=== PATIENT | male | born 1990 | race African-American/Black ===

== ENCOUNTER 2016-04-29 04:13 | Emergency (ER) | payer OTHER ==
--- NOTE | 2016-04-29 04:28 | ED ---
Osorio Hua Karl, scribed for Romeo Purdy MD on 04/29/16 at 0421 . Substance Abuse/Use - HPI Summary HPI Summary: Pt is a 25 y/o male brought in by [facility] that presents to the ED c/o acute EtOH intoxication. Pt reported that he drank too much patron and red bull tonight at home with his mother and girlfriend. Pt also reported that he used marijuana at 12:00 today. - History Of Current Complaint Stated Complaint: ALCOHOL CONSUMPTION Hx Obtained From: Patient, EMS Onset/Duration of Drug/ETOH Abuse: Hours Ingestion History: Amount Ingested Timing Of Abuse: Binge Use Severity Initially: Moderate Severity Currently: Moderate Character: Other - intoxicated Associated Signs And Symptoms: Nausea, Vomiting - Allergies/Home Medications Allergies/Adverse Reactions: Allergies Allergy/AdvReac Type Severity Reaction Status Date / Time No Known Allergies Allergy Verified 03/02/13 02:39 PMH/Surg Hx/FS Hx/Imm Hx - Family History Known Family History: Negative: Other - malignant hyperthermia - Social History Alcohol Use: Occasionally Substance Use Type: Reports: Marijuana Review of Systems Constitutional: Negative Eyes: Negative ENT: Negative Cardiovascular: Negative Respiratory: Negative Positive: Vomiting Genitourinary: Negative Musculoskeletal: Negative Skin: Negative Neurological: Negative Psychological: Other - acute EtOH intoxication All Other Systems Reviewed And Are Negative: Yes Physical Exam Triage Information Reviewed: Yes Vital Signs On Initial Exam: Initial Vitals Temp Pulse Resp BP Pulse Ox 98.0 F 64 16 154/100 97 04/29/16 04:17 04/29/16 04:17 04/29/16 04:17 04/29/16 04:17 04/29/16 04:17 Vital Signs Reviewed: Yes Appearance: Positive: Well-Appearing, No Pain Distress Skin: Positive: Warm Head/Face: Positive: Normal Head/Face Inspection Eyes: Positive: NAEEM ENT: Positive: Hearing grossly normal Neck: Positive: Supple Respiratory/Lung Sounds: Positive: Breath Sounds Present Cardiovascular: Positive: Normal Abdomen Description: Positive: Nontender, Soft Bowel Sounds: Positive: Present Musculoskeletal: Positive: Strength/ROM Intact Neurological: Positive: Sensory/Motor Intact, Alert, Oriented to Person Place, Time, Normal Gait Psychiatric: Positive: Normal Diagnostics - Vital Signs Vital Signs Temp Pulse Resp BP Pulse Ox 04/29/16 04:17 98.0 F 64 16 154/100 97 - Laboratory Lab Statement: Any lab studies that have been ordered have been reviewed, and results considered in the medical decision making process. Re-Evaluation - Re-Evaluation First Eval Change: Improved Course/Dx - Diagnoses Provider Diagnoses: Alcohol intoxication Discharge - Discharge Plan Condition: Improved Disposition: HOME Patient Education Materials: Alcohol Intoxication (ED), Abuse of Alcohol (ED) Referrals: Wily Casas MD [Primary Care Provider] - Additional Instructions: Please follow up with your primary care provider. Return to the emergency department for changing or worsening symptoms. The documentation as recorded by the Osorio ealge Karl accurately reflects the service I personally performed and the decisions made by , Romeo Purdy MD.
[2016-04-29 05:48] VITALS: BP 160/95
== END 2016-04-29 05:46 | disposition home or self-care (01) ==
LOC: ED 04:13
DX: F10.129 Alcohol abuse with intoxication, unspecified (principal); R11.2 Nausea with vomiting, unspecified
CPT/HCPCS: 99282

== ENCOUNTER → 2016-11-21 19:37 | Emergency (ER) | payer SELFPAY ==
--- NOTE | 2016-11-21 20:28 | RAD ---
INDICATION: LEFT wrist pain post fall 2 days ago. COMPARISON: No relevant prior exams available on the [facility] for comparison. TECHNIQUE: AP, lateral, and oblique views LEFT wrist. REPORT: Normal articular alignment. No cortical disruption or suspicious trabecular irregularity to suggest fracture. Preserved joint spaces. Unremarkable soft tissue contours. IMPRESSION: Negative exam. If there is high index of suspicion for an occult scaphoid fracture repeat exam in 7 - 10 days would be suggested.
--- NOTE | 2016-11-21 20:58 | ED ---
Upper Extremity Pain - HPI Summary HPI Summary: 26M presents with left wrist injury 3 days ago. He fell onto his wrist. He has full ROM of finger. minimal swelling. has not taken anything for pain. no numbness or tingling. no pain near thumb is near ulnar aspect of wrist. denies any previous injury to area. He is right handed and works in construction. - History of Current Complaint Chief Complaint: EDExtremityUpper Stated Complaint: LT WRIST INJURY Time Seen by Provider: 11/21/16 19:41 - Allergies/Home Medications Allergies/Adverse Reactions: Allergies Allergy/AdvReac Type Severity Reaction Status Date / Time No Known Allergies Allergy Verified 11/21/16 19:40 PMH/Surg Hx/FS Hx/Imm Hx Endocrine/Hematology History: Denies: Hx Anticoagulant Therapy Respiratory History: Denies: Hx Asthma Infectious Disease History: No Infectious Disease History: Denies: Traveled Outside the [place] in Last 30 Days - Family History Known Family History: Negative: Other - malignant hyperthermia - Social History Alcohol Use: Occasionally Alcohol Amount: on weekends Substance Use Type: Reports: None Smoking Status (MU): Light Every Day Tobacco Smoker Review of Systems Negative: Fever Negative: Chest Pain Negative: Shortness Of Breath Positive: Myalgia - left wrist pain All Other Systems Reviewed And Are Negative: Yes Physical Exam Triage Information Reviewed: Yes Vital Signs On Initial Exam: Initial Vitals Temp 98.1 F 11/21/16 19:40 Vital Signs Reviewed: Yes Appearance: Positive: Well-Appearing Skin: Positive: Warm, Dry Head/Face: Positive: Normal Head/Face Inspection Eyes: Positive: Normal, Conjunctiva Clear Respiratory/Lung Sounds: Positive: Clear to Auscultation, Breath Sounds Present Cardiovascular: Positive: Normal, RRR Musculoskeletal: Positive: Strength/ROM Intact - left wrist with pain, Other - minimal edema. neg snuff box tenderness. good pulses, capillary refill<2 secs Diagnostics - Vital Signs Vital Signs Temp Pulse Resp BP Pulse Ox 11/21/16 19:41 98.1 F 77 16 153/96 98 11/21/16 19:40 98.1 F - Laboratory Lab Statement: Any lab studies that have been ordered have been reviewed, and results considered in the medical decision making process. Course/Dx - Course Course Of Treatment: 26M presents with left wrist injury 3 days ago. He fell onto his wrist. He has full ROM of finger. minimal swelling. has not taken anything for pain. no numbness or tingling. no pain near thumb is near ulnar aspect of wrist. denies any previous injury to area. xray normal. no snuff box tenderness, will treat as sprain with rice. patient understands and agrees with plan. - Diagnoses Differential Diagnosis/HQI/PQRI: Positive: Fracture (Closed), Strain, Sprain Provider Diagnoses: Left wrist injury Discharge - Discharge Plan Condition: Good Disposition: HOME Patient Education Materials: Wrist Sprain (ED) Referrals: Wily Casas MD [Primary Care Provider] - Additional Instructions: Take Tylenol or ibuprofen every 6 hours as needed for pain Apply ice, rest, elevate Follow up with primary care physician within 5 days if no improvement Return to ED if develop any new or worsening symptoms
[2016-11-21 21:10] VITALS: BP 149/84
== END | disposition home or self-care (01) ==
LOC: ED 19:37
DX: S69.92XA Unspecified injury of left wrist, hand and finger(s), initial encounter (principal); M25.532 Pain in left wrist; F17.210 Nicotine dependence, cigarettes, uncomplicated; W19.XXXA Unspecified fall, initial encounter; Y93.9 Activity, unspecified; Y92.9 Unspecified place or not applicable
CPT/HCPCS: 99281

== ENCOUNTER 2021-05-06 07:47 | Inpatient (IN) ==
[2021-05-07 14:58] LABS: Urine Appearance Turbid; Urine Bilirubin Negative (Negative); Urine Blood Negative (Negative); Urine Color Yellow; Urine Glucose Negative (Negative); Urine Ketones Trace (Negative); Urine Nitrite Positive (Negative); Urine Protein 1+(30 mg/dL) (Negative); Urine Specific Gravity 1.017 (1.002-1.030); Urine Urobilinogen Negative (Negative)
[2021-05-07 15:04] LABS: Urine Bacteria 1+ (Absent); Urine Red Blood Cell Absent (Absent); Urine White Blood Cell 3+(>20/hpf) (Absent)
[2021-05-07] MEDS ORDERED: Senna TAB 8.6 mg TAB PO SCH (21:00)
[2021-05-08 06:32] LABS: ABS Eosinophils 0.4 10^3/ul (0-0.6); ABS Lymphocytes 1.8 10^3/ul (1.0-4.8); ABS Monocytes 0.5 10^3/ul (0-0.8); ABS Neutrophils 3.5 10^3/ul (1.5-7.7); Eosinophil % 6.9 %; Hematocrit 36 % (42-52); Hemoglobin 12.2 g/dL (14.0-18.0); Lymphocyte % 28.9 %; Mean Corpuscular HGB Conc 34 g/dL (31-36); Mean Corpuscular Hemoglobin 30 pg (27-31); Mean Corpuscular Volume 87 fL (80-94); Mean Platelet Volume 7.3 fL (7.4-10.4); Nucleated Red Blood Cells % 0.1; Platelet Count 267 10^3/uL (150-450); Red Blood Count 4.11 10^6 /uL (4.18-5.48); Red Cell Distribution Width 14 % (10-15); White Blood Count 6.3 10^3/uL (3.5-10.8)
[2021-05-08 06:56] LABS: Albumin 3.9 g/dL (3.2-5.2); Albumin/Globulin Ratio 1.2 (1-3); Calcium 9.4 mg/dL (8.6-10.3); Globulin 3.2 g/dL (2-4); Total Bilirubin 0.5 mg/dL (0.2-1.0); Total Protein 7.1 g/dL (6.4-8.9)
[2021-05-08 10:02] LABS: Potassium 4.2 mmol/L (3.5-5.0)
[2021-05-08 15:24] VITALS: BP 153/74
[2021-05-08] MEDS ORDERED: Sodium Phosphate ADULT ENEMA 133 ML BTL PR PRN (18:48)
[2021-05-08] MEDS ORDERED: Sulfamethox/Trimethoprim DS TAB 800/160 mg PO SCH (21:00)
== END 2021-05-08 18:30 | disposition left against medical advice (07) | DRG 40 ==
LOC: PMRU 05-07 09:22
PROVIDERS: ADMIT Physical Medicine & Rehabilitation; ATTEND Physical Medicine & Rehabilitation